=== PATIENT | male | born 1945 | race Caucasian/White ===

== ENCOUNTER → 2017-05-04 | Outpatient (CLI) | payer MEDICARE, OTHER | END | disposition home or self-care (01) | LOC: CVU 06:40 | PROVIDERS: ATTEND Internal Medicine Cardiovascular Disease | DX: I07.1 Rheumatic tricuspid insufficiency (principal); I11.0 Hypertensive heart disease with heart failure | CPT/HCPCS: 93306 ==

== ENCOUNTER → 2018-11-13 | Outpatient (CLI) | payer MEDICARE, OTHER ==
[~2018-11-13] MED LIST: ACET325T14 PO; CELE50CA PO; LISI2.5T PO; REGADENOSON 0.4 MG/5 ML SYRINGE ONE
== END | disposition home or self-care (01) ==
LOC: CFH 07:59
PROVIDERS: ATTEND Internal Medicine Cardiovascular Disease
DX: I08.3 Combined rheumatic disorders of mitral, aortic and tricuspid valves (principal); E78.5 Hyperlipidemia, unspecified; I10 Essential (primary) hypertension; Z72.0 Tobacco use
CPT/HCPCS: 78452; 93017; 93306; A9502; J2785

== ENCOUNTER 2019-10-13 08:23 | Outpatient (CLI) | payer MEDICARE, OTHER ==
[~2019-10-13 08:23] MED LIST changes: -REGADENOSON 0.4 MG/5 ML SYRINGE ONE
== END 2019-10-13 23:59 | disposition home or self-care (01) ==
LOC: CFH 08:23
PROVIDERS: ATTEND Internal Medicine Cardiovascular Disease
DX: Z13.6 Encounter for screening for cardiovascular disorders (principal); I25.10 Atherosclerotic heart disease of native coronary artery without angina pectoris; R06.02 Shortness of breath; R94.31 Abnormal electrocardiogram [ECG] [EKG]
CPT/HCPCS: 75571

== ENCOUNTER 2019-11-27 07:25 | Day surgery (SDC) | payer MEDICARE, OTHER ==
[~2019-11-27] VITALS: Ht 177.8 cm; Wt 87.5 kg
[2019-11-27 07:42] VITALS: BP 120/74
[2019-11-27] MEDS ORDERED: VALS80TA3 PO (07:53)
[2019-11-27] MEDS ORDERED: CELE200C PO (07:54)
[2019-11-27] MEDS ORDERED: OXYB5TAB10 PO (07:55)
[2019-11-27] MEDS ORDERED: FINA5TAB4 PO (07:55)
[2019-11-27] MEDS ORDERED: CETI10TA32 PO (07:56)
[2019-11-27] MEDS ORDERED: PLEASE ENTER HEIGHT AND WEIGHT MC SCH (08:00)
[2019-11-27 08:07] LABS: BASOPHILS # (AUTO) 0.04 x10^3/uL (0-0.1); BASOPHILS % (AUTO) 1 % (0-1); EOSINOPHILS # (AUTO) 0.32 x10^3/uL (0-0.4); EOSINOPHILS % (AUTO) 4 % (1-7); LYMPHOCYTES # (AUTO) 1.94 x10^3/uL (1-3.4); LYMPHOCYTES % (AUTO) 26 % (22-44); MD NO; MEAN CORPUSCULAR HEMOGLOBIN 29.9 pg (27.5-34.5); MEAN CORPUSCULAR HGB CONC 32.9 g/dL (33.2-36.2); MEAN CORPUSCULAR VOLUME 90.8 fL (81-97); MEAN PLATELET VOLUME 7.6 fL (7.4-10.4); MONOCYTES # (AUTO) 0.63 x10^3/uL (0.2-0.8); MONOCYTES % (AUTO) 8 % (2-9); NEUTROPHILS % (AUTO) 61 % (42-75); PLATELET COUNT 226 x10^3/uL (130-400); RED BLOOD COUNT 4.99 x10^6/uL (4.38-5.82); RED CELL DISTRIBUTION WIDTH 13.9 % (9.4-14.8)
[2019-11-27 08:16] LABS: INTERNATIONAL NORMALIZED RATIO 0.94 (0.93-1.1)
[2019-11-27 08:18] LABS: ANION GAP 6 mmol/L (5-15); CALCIUM 9.2 mg/dL (8.5-10.1); CHLORIDE 107 mmol/L (98-107); CREATININE 1.22 mg/dL (0.7-1.3)
[2019-11-27] MEDS ORDERED: FENTANYL PF 100 MCG/2ML ONE (08:19)
[2019-11-27] MEDS ORDERED: LIDOCAINE 2%, 20ML ONE (08:19)
[2019-11-27] MEDS ORDERED: MIDAZOLAM 1 MG/ML, 5ML ONE (08:19)
[2019-11-27] MEDS ORDERED: SODIUM CHLORIDE 0.9% 1,000 ML IV SCH (11:00)
== END 2019-11-27 11:00 | disposition home or self-care (01) ==
LOC: CACL 07:25
PROVIDERS: ATTEND Internal Medicine Cardiovascular Disease
DX: R94.39 Abnormal result of other cardiovascular function study (principal); I25.118 Atherosclerotic heart disease of native coronary artery with other forms of angina pectoris; I10 Essential (primary) hypertension; E78.49 Other hyperlipidemia; N40.0 Benign prostatic hyperplasia without lower urinary tract symptoms; J44.9 Chronic obstructive pulmonary disease, unspecified; G47.30 Sleep apnea, unspecified; E66.3 Overweight; Z68.27 Body mass index [BMI] 27.0-27.9, adult; Z79.82 Long term (current) use of aspirin; Z79.01 Long term (current) use of anticoagulants; Z79.899 Other long term (current) drug therapy; Z87.891 Personal history of nicotine dependence; Z99.81 Dependence on supplemental oxygen; Z82.49 Family history of ischemic heart disease and other diseases of the circulatory system
CPT/HCPCS: 36415; 80048; 85025; 85610; 93458; 99156; C1760; C1769; C1894; J2250; J3010; Q9967

== ENCOUNTER → 2020-05-25 | Outpatient (CLI) | payer MEDICARE, OTHER ==
[~2020-05-25] MED LIST changes: +CELE200C PO; +CETI10TA32 PO; +FINA5TAB4 PO; +OXYB5TAB10 PO; +VALS80TA3 PO
== END | disposition home or self-care (01) ==
LOC: CFH 11:01
PROVIDERS: ATTEND Internal Medicine Cardiovascular Disease
DX: J44.9 Chronic obstructive pulmonary disease, unspecified (principal); M47.814 Spondylosis without myelopathy or radiculopathy, thoracic region; R06.02 Shortness of breath; R05 Cough; I10 Essential (primary) hypertension; R73.01 Impaired fasting glucose; R93.1 Abnormal findings on diagnostic imaging of heart and coronary circulation; G47.30 Sleep apnea, unspecified
CPT/HCPCS: 71046

== ENCOUNTER → 2020-06-09 | Outpatient (CLI) | payer MEDICARE, OTHER | END | disposition home or self-care (01) | LOC: CFH 09:40 | PROVIDERS: ATTEND Nurse Practitioner Family | DX: R94.2 Abnormal results of pulmonary function studies (principal) | CPT/HCPCS: 71250 ==